=== PATIENT | female | born 1940 | race African-American/Black ===

== ENCOUNTER 2022-03-17 16:04 | Emergency (ER) | payer MEDICARE, SELFPAY ==
[2022-03-17] MEDS ORDERED: Morphine 4 MG/ML VIAL ONE (18:22)
[2022-03-17] MEDS ORDERED: Ondansetron ODT 4 MG TAB ONE (18:22)
[2022-03-17 20:12] LABS: Bilirubin Negative (Negative); Blood, Urine Negative (Negative); Clarity Clear (Clear); Glucose, Urine (Dipstick) Normal (Negative); Ketone, Urine Negative (Negative); Leukocyte Negative Leu/uL (Negative); Nitrite Negative (Negative); Protein, Urine (Dipstick) Negative (Neg-Trace); Urobilinogen Normal mg/dL (Less than 2)
[2022-03-17] MEDS ORDERED: HYDROcodone/Acetaminophen 5/325 mg Tablet ONE (21:31)
== END 2022-03-17 21:55 | disposition home or self-care (01) ==
LOC: ERS 16:04
DX: M87.052 Idiopathic aseptic necrosis of left femur (principal); E03.9 Hypothyroidism, unspecified
CPT/HCPCS: 72170; 81003; 87086; 87804; 96372; J2270; Q0162